=== PATIENT | female | born 1935 | race Caucasian/White ===

== ENCOUNTER 2016-12-16 12:08 | Emergency (ER) | payer MEDICARE ==
[~2016-12-16] VITALS: Ht 147.3 cm; Wt 72.7 kg
[~2016-12-16 12:08] MED LIST: ALBU8.5H2 INHALATION; CLOB15CR3 TOP; CLON0.2T PO; HYDR-4003 PO; INDA2.5T2 PO; LEVO100T6 PO; LORA0.5T PO; METH750T3 PO; METO100T3 PO; METO50TA3 PO; MULT-666 PO; NITR4.1S2 TRANSLING; OMEP20CA11 PO; OSLT75C PO; POTA20TA16 PO; PRED-508 PO; SERT50TA9 PO; SIMV20TA4 PO
[2016-12-16 12:11] VITALS: BP 176/66; RESP 18; O2SAT 95
[2016-12-16 12:35] LABS: BASOPHILS % (AUTO) 0.3 % (0-3); EOSINOPHILS % (AUTO) 2.3 % (0-5); MONOCYTES % (AUTO) 11.1 % (4-12); Mean Corpuscular Hemoglobin 30.2 pg (27.0-35.0); Mean Corpuscular Volume 90.5 fL (81-100); NEUTROPHILS % (AUTO) 57.6 % (40-74); Platelet Count 202 bil/L (150-400)
--- NOTE | 2016-12-16 12:55 | ED.REPORT ---
HPI-Chest Pain 40 and Over Date of Service Dec 16, 2016 ED Provider: Tacho Schmidt DO 81 year old female with a history of SC 2004, HTN, high cholesterol, and GERD presents to the ER complaining of chest pressure and shortness of breath [place]. Symptoms were treated with her prescribed NTG. Currently symptoms are almost completely resolved. She states that she experiences episodes of similar chest pain on a weekly basis, but the severity of pain and shortness of breath today prompted her visit to the ER. Patient denies abdominal pain, vomiting, diarrhea, abdominal pain and recent illness. Nursing Notes Stated Complaint: SOB Chief Complaint: Chest Pain Nursing Notes Reviewed: Yes Allergies: Coded Allergies: latex (Verified Allergy, Intermediate, Rash, 10/24/16) amoxicillin (Verified Allergy, Unknown, 10/24/16) Scheduled Albuterol HFA (Proair HFA) 8.5 Gm Hfa.aer.ad 1 PUFFS INHALATION Q4-6HR Clobetasol Propionate/Emoll (Clobetasol Emollient 0.05% Crm) 15 Gm Cream..g. 1 APPL TOP BID Clonidine (Clonidine) 0.2 Mg Tablet 0.2 MG PO HS Indapamide (Indapamide) 2.5 Mg Tablet 2.5 MG PO DAILY Levothyroxine (Levothyroxine) 100 Mcg Tablet 100 MCG PO DAILY Metoprolol Tartrate (Metoprolol Tartrate) 50 Mg Tablet 50 MG PO HS Metoprolol Tartrate (Metoprolol Tartrate) 100 Mg Tablet 100 MG PO DAILY Omeprazole (Omeprazole) 20 Mg Capsule.dr 20 MG PO DAILY Oseltamivir Phosphate (Tamiflu) 10 Cap/Pkg Capsule 75 MG PO BID Potassium Chloride (Potassium Chloride) 20 Meq Tab.er.prt 20 MEQ PO DAILY TAKE WITH FOOD Prednisone (Deltasone) 20 Mg Tablet 40 MG PO DAILY Sertraline HCl (Sertraline) 50 Mg Tablet 50 MG PO DAILY Simvastatin (Simvastatin) 20 Mg Tablet 20 MG PO HS Scheduled PRN Hydrocodone-Acetaminophen 5-325 mg (Hydrocodone-Acetaminophen 5-325 mg) 1 Each Tablet 1 TABLET PO QID PRN PRN For Pain Lorazepam (Lorazepam) 0.5 Mg Tablet 0.5 MG PO HS PRN PRN For Insomnia Methocarbamol (Methocarbamol) 750 Mg Tablet 750 MG PO HS PRN PRN For Spasm Miscellaneous Medications Multivitamin (Once Daily) 1 Each Tablet 1 EACH PO Nitroglycerin Jenera (Nitroglycerin Jenera) 4.1 Gm Jenera 4.1 GM TRANSLING General Time Seen by MD: 12:23 Chief Complaint Chest pressure, Shortness of breath Hx Obtained From: Patient Arrived By: Walk-in Sudden in Onset?: Yes Onset Occurred: Just prior to arrival Symptom Duration: Since onset Location: : Substernal Quality: Pressure Radiation: : Arm right Severity: Current: Moderate Severity: Maximum: Moderate Associated with: Denies: Fever, Nausea, Vomiting Pertinent Negative: Pt denies other symptoms Context Related History: Reports: Hypertension, Myocardial infarction Similar Sx Previous: Yes Past Medical History Past Medical History hypertension high cholesterol hypothyroid esophageal narrowing d/t reflux per pt SC 2004 irregular heartbeat encapsulated TB diverticulitis heartburn Past Surgical History bladder repair hysterectomy cardiac stents 2004 laminectomy with cages 2005 Smoking History Former Smoker Social History Other Social History: Good social support Ambulatory Status Independent Review of Systems Constitutional: Denies: Chills, Fever Respiratory: Reports: Shortness of breath, Denies: Non-productive cough Cardiovascular: Reports: Chest pain GI: Denies: Abdominal pain, Diarrhea, Nausea, Vomiting Musculoskeletal: Reports: Extremity pain (Bicep, Right) Complete sys rev & neg: except as marked. Physical Exam Initial Vital Signs Vital Signs (First) Date Time Temp Pulse Resp B/P Pulse Ox O2 Delivery O2 Flow Rate FiO2 12/16/16 12:11 18 176/66 95 Room Air 12/16/16 13:06 73 2 12/16/16 13:59 35.5 Initial VS: Reviewed Head / Eyes: Atraumatic, Normocephalic Neck: Supple, Non-tender, Full range of motion Extremities: Vascular intact, Neuro intact, No swelling, No tenderness Skin: Warm, Dry, No cyanosis Neurologic: Alert, Oriented, Nonfocal Psychiatric: Mood/affect normal, Behavior normal, Normal thought content General/Constitutional: Awake, Alert, Well developed, Well nourished Respiratory / Chest: Breath sounds NL, Breath sounds = bilat, No respiratory distress, No rales, No rhonchi, No wheezing, No stridor, No chest tenderness Cardiovascular: Heart rate NL, Regular rhythm, Heart sounds NL, No murmurs, Peripheral circulation NL, Pulses = bilaterally, No gross BP differential Abdomen: Soft, Non-tender, No guarding, No rebound, No distention Interpretation & Diagnostics Lab Results Interpretation Result Diagram: 12/16/16 1224 12/16/16 1224 Test 12/16/16 12:24 12/16/16 14:06 12/16/16 14:13 12/16/16 15:09 White Blood Count 9.5th/mm3 (3.8-10.1) Red Blood Count 4.94mil/mm3 (3.90-5.20) Hemoglobin 14.9g/dL (12.0-15.6) Hematocrit 44.7% (35.0-46.0) Mean Corpuscular Volume 90.5fL (81-100) Mean Corpuscular Hemoglobin 30.2pg (27.0-35.0) Mean Corpuscular Hemoglobin Concent 33.3% (32.0-37.0) Red Cell Distribution Width 13.2% (12.3-15.4) Platelet Count 202bil/L (150-400) Neutrophils (%) (Auto) 57.6% (40-74) Lymphocytes (%) (Auto) 28.6% (14-46) Monocytes (%) (Auto) 11.1% (4-12) Eosinophils (%) (Auto) 2.3% (0-5) Basophils (%) (Auto) 0.3% (0-3) Sodium Level 141mEq/L (134-144) Potassium Level 3.6mEq/L (3.5-5.2) Chloride Level 98mEq/L (97-108) Carbon Dioxide Level 24mmol/L (18-29) Blood Urea Nitrogen 15mg/dL (8-27) Creatinine 0.81mg/dL (0.57-1.00) Estimat Glomerular Filtration Rate 97mL/min (>59) Glucose Level 82mg/dL (60-99) Calcium Level 9.5mg/dL (8.5-10.1) Magnesium Level 1.6mg/dL (1.6-2.6) Total Bilirubin 0.4mg/dL (0.0-1.2) Aspartate Amino Transf (AST/SGOT) 42U/L (0-50) Alanine Aminotransferase (ALT/SGPT) 22U/L (0-32) Alkaline Phosphatase 78U/L (25-165) Total Protein 7.0g/dL (6.4-8.4) Albumin 4.1g/dL (3.4-5.0) Hold Waldrop Top Tube Received (Received) D-Dimer 0.9mg/L (<0.50) Troponin T < 0.010ug/L (0.0-0.011) ECG Interpretation Time: 12:20 Interpreted by: ED physician Normal ECG Interpretation: Normal rate, Normal sinus rhythm, No acute ischemic changes, Normal QRS, Normal axis, Normal intervals, No change from prior ECGs, Adequate tracing Repeat ECG: Repeat ECG unchanged (14:11) X-Ray Chest Interpretation Chest Xray Interpretation: IMPRESSION: No acute cardiopulmonary disease. Dictated by: Stan Villalobos M.D. on 12/16/2016 at 13:20 Approved by: Stan Villalobos M.D. on 12/16/2016 at 13:21 View: Portable, 1 view Interpretation / Wet Read by: Interpret - Radiologist Re-Eval/Medical Decision Med Decision/Clinical Course Overall this sounds more consistent with stable angina, pain relieved after a single mitral given in the ER. Patient has had serially negative troponins and EKGs currently awaiting angiography of the chest. Transferred to Dr. Lee. Source of Hx: Old records Time of Eval: 13:16 Re-Evaluation/Progress Note: Updated patient on the plan of care. Re-Evaluation/Progress Note: Discussed lab and radiology results, physical examination findings and plan to discharge. Patient is amenable to the plan. Return precautions given. All other questions addressed. Consultation : Referral / Consult Name: Ulises Garrett MD Consulted With: Cardiology Call Returned at: 14:03 Note: Discussed patient case with Dr. Garrett, Cardiology. Serial troponin and ECGs, if negative and unchanging, and she passes a road test, he will follow-up. Discharge & Departure Primary Impression: Chest pain Discharge Condition All VS Reviewed: Yes Condition: Stable Referrals: Alfredo Castro MD (PCP) Scribe Attestation Portions of this note were transcribed by Ismael Ford. I, Dr. Schmidt, personally performed the history, physical exam and medical decision-making; I reviewed and confirmed the accuracy of the information in the transcribed note. Signed by: Katina Barcenas, 12/16/2016 and 15:12 copies to: Alfredo Castro MD, Timothy S DO Dec 16, 2016 12:55 ISMAEL FORD Dec 16, 2016 12:58
[2016-12-16 13:06] VITALS: BP 164/70; PULSE 73; RESP 12; O2SAT 98
--- NOTE | 2016-12-16 13:22 | DRSVH ---
PROCEDURE: X-RAY CHEST ONE VIEW, PORTABLE ([id number]) INDICATIONS: sob TECHNIQUE: One view of the chest was acquired. COMPARISON: [facility], CR, XR CHEST 1VW (PORTABLE), 10/24/2016, 14:46. FINDINGS: Surgical changes and devices: Partially visualized spinal instrumentation in the thoracolumbar spine Lungs and pleura: No pleural effusions or pneumothorax. Lungs are clear. Mediastinum: Mediastinal contours appear normal. Heart size is normal. Bones and chest wall: No suspicious bony lesions. Overlying soft tissues appear unremarkable. IMPRESSION: No acute cardiopulmonary disease. Dictated by: Stan Villalobos M.D. on 12/16/2016 at 13:20 Approved by: Stan Villalobos M.D. on 12/16/2016 at 13:21
[2016-12-16 13:25] LABS: Magnesium 1.6 mg/dL (1.6-2.6); TROPONIN T < 0.010 ug/L (0.0-0.011)
[2016-12-16 13:59] VITALS: BP 154/77; PULSE 74; RESP 21; O2SAT 98
[2016-12-16 15:42] LABS: APPEARANCE,URINE HAZY (CLEAR,HAZY); COLOR,URINE STRAW (YELLOW); OCCULT BLOOD,URINE NEGATIVE (NEGATIVE); UROBILINOGEN,URINE NORMAL (NORMAL)
--- NOTE | 2016-12-16 15:52 | DRSVH ---
PROCEDURE: CT ANGIO CHEST PULMONARY EMBOLISM ([id number]) INDICATIONS: dyspnea, elevated ddimer TECHNIQUE: After the administration of intravenous contrast, 2 mm thick sections acquired from the pulmonary api yareli to the posterior costophrenic angles. 3-dimensional maximum intensity projection (MIP) coronal a nd sagittal reformats were then acquired through the thorax. For radiation dose reduction, the follo wing was used: automated exposure control, adjustment of mA and/or kV according to patient size. COMPARISON: [facility], CT, ABD/PELVIS W/CON (PNL), 09/20/2013, 13:56. [facility], CR, XR CHEST 1VW (PORTABLE), 12/16/2016, 12:27. FINDINGS: Image quality: There is mild motion artifact. Metallic streak artifact is also present from patient' s surgical hardware limiting evaluation. Pulmonary arteries: Pulmonary arteries are normal in size, and demonstrate no intraluminal filling d efects to suggest central pulmonary embolism. Evaluation of distal subsegmental branches in the lung bases is limited due to motion artifact. Lungs and pleura: There is mild basilar atelectasis. No focal consolidation. No pleural effusions or pneumothorax. Central and peripheral airways are patent. Mediastinum: Heart size is normal, without pericardial effusion. No mediastinal or hilar adenopathy . Thoracic aorta is normal in caliber and enhancement. Esophagus is normal in caliber, without hiat al hernia. Bones and chest wall: No suspicious bony lesions. Ribs and thoracic spine appear intact throughout. Thyroid gland is partially visualized with a small hypoattenuating nodule in the inferior left thyr oid lobe measuring up to 0.7 mm. No axillary or supraclavicular adenopathy. Abdomen: Visualized upper abdomen demonstrates heterogeneity of the visualized liver with a nodular hepatic contour. There is fatty atrophy of the visualized pancreas. IMPRESSION: 1. No evidence of central pulmonary embolism, with evaluation of distal subsegmental branches in the lung bases limited due to respiratory motion artifact. 2. Heterogeneity of the visualized liver with mild nodularity of hepatic contour raising the possibi lity of cirrhosis. Recommend correlation with clinical history. Dictated by: Adis Dias M.D. on 12/16/2016 at 15:38 Approved by: Adis Dias M.D. on 12/16/2016 at 15:50
[2016-12-16 17:21] VITALS: BP 133/72; PULSE 76; RESP 16; O2SAT 98
== END 2016-12-16 17:45 | disposition home or self-care (01) ==
LOC: SED 12:08
DX: R07.9 Chest pain, unspecified (principal); I10 Essential (primary) hypertension; K21.9 Gastro-esophageal reflux disease without esophagitis; I25.2 Old myocardial infarction; Z90.710 Acquired absence of both cervix and uterus; Z87.891 Personal history of nicotine dependence; Z88.1 Allergy status to other antibiotic agents; Z91.040 Latex allergy status
CPT/HCPCS: 36415; 71010; 71275; 80053; 81000; 82948; 83735; 84484; 85025; 85379; 93005; 99285; Q9967